=== PATIENT | male | born 1955 | race Caucasian/White ===

== ENCOUNTER 2017-07-28 14:07 | Outpatient (CLI) | payer MEDICAID ==
--- NOTE | 2017-07-28 19:21 | XRAY Report ---
DATE OF SERVICE: 07/28/2017 TWO VIEW CHEST: 07/28/2017 CLINICAL INDICATION: A 61-year-old with history of TB exposure. Frontal and lateral views of the chest demonstrate a normal cardiac silhouette. The lungs are clear. No effusion or pneumothorax is present. IMPRESSION: Normal chest. No evidence of active tuberculosis. TD: 07/28/2017 20:20
== END 2017-07-28 14:08 | disposition home or self-care (01) ==
LOC: DI 14:07
PROVIDERS: ATTEND Family Medicine
DX: R76.12 Nonspecific reaction to cell mediated immunity measurement of gamma interferon antigen response without active tuberculosis (principal); Z20.1 Contact with and (suspected) exposure to tuberculosis
CPT/HCPCS: 71046

== ENCOUNTER 2018-12-21 08:42 | Outpatient (CLI) | payer MEDICAID ==
--- NOTE | 2018-12-21 09:12 | XRAY Report ---
Reason: FOOT PAIN,RIGHT Procedure Date: 12/21/2018 Accession Number: [id number] / [id number] Procedure: WCP - Foot 2 View RT CPT Code: FULL RESULT: EXAM: RIGHT FOOT RADIOGRAPHY EXAM DATE: 12/21/2018 09:02 AM. CLINICAL HISTORY: FOOT PAIN,RIGHT. COMPARISON: None. TECHNIQUE: 3 views. FINDINGS: Bones: Normal. No fractures or bone lesions. Joints: Normal. No subluxations. Soft Tissues: Normal. No soft tissue swelling. IMPRESSION: Normal foot radiography. RADIA
== END 2018-12-21 08:43 | disposition home or self-care (01) ==
LOC: DI.WCP 08:42
PROVIDERS: ATTEND Family Medicine
DX: M79.671 Pain in right foot (principal)

== ENCOUNTER 2020-01-17 13:22 | Emergency (ER) | payer MEDICARE, MEDICAID ==
[2020-01-17 14:01] LABS: BASOPHILS # (AUTO) 0.1 10^3/uL (0.0-0.1); EOSINOPHILS # (AUTO) 0.1 10^3/uL (0.0-0.7); HGB - HEMOGLOBIN 15.8 g/dL (14.0-18.0); LYMPHOCYTES # (AUTO) 2.6 10^3/uL (1.5-3.5); LYMPHOCYTES % (AUTO) 37.4 %; MEAN CORPUSCULAR HEMOGLOBIN 30.6 pg (27.0-31.0); MEAN CORPUSCULAR HGB CONC 34.9 g/dL (32.0-36.0); MEAN CORPUSCULAR VOLUME 87.8 fL (80.0-94.0); MEAN PLATELET VOLUME 10.4 fL (7.4-11.4); MONOCYTES # (AUTO) 0.6 10^3/uL (0.0-1.0); MONOCYTES % (AUTO) 8.9 %; NEUTROPHILS # (AUTO) 3.5 10^3/uL (1.5-6.6); NEUTROPHILS % (AUTO) 50.4 %; PLT - PLATELET COUNT 241 10^3/uL (130-450); RED BLOOD COUNT 5.16 10^6/uL (4.70-6.10); RED CELL DISTRIBUTION WIDTH 12.5 % (12.0-15.0); WHITE BLOOD COUNT 6.9 x10^3/uL (4.8-10.8)
--- NOTE | 2020-01-17 14:15 | ED Physician Documentation ---
History of Present Illness - Stated complaint Stated Complaint: ABD PX - Chief complaint Chief Complaint: Cardiac - History obtained from History obtained from: Patient - History of Present Illness Timing: Prior to arrival, How many hours ago (2) Pain level max: 10 Pain level now: 7 Radiates to: back, shoulders - Additonal information Additional information: 64-year-old male presents to the emergency department with a chief complaint of very sudden onset upper abdominal pain that he reports nearly dropped him to his knees. The pain was sharp sub-costal on both sides and radiated to his back. It did make him feel faint and lightheaded though he did not syncopize. Patient denies any history of similar pain in the past. Denies any pertinent past surgical history. He has a history of marginal hypertension though is never been started on medications. Denies any previous history of myocardial infarction. He reports that he is generally very healthy and is an active runner. This pain followed a meal that had been eaten approximately 1 hour before but at the time the pain started he was simply sitting in a chair without activity. pmh: negative meds: none Review of Systems Cardiac: reports: Chest pain / pressure, Palpitations Respiratory: denies: Dyspnea, Cough GI: reports: Abdominal Pain. denies: Nausea, Vomiting, Constipation, Diarrhea, Hematemesis : denies: Dysuria Skin: reports: Rash, Lesions Musculoskeletal: reports: Back pain Neurologic: reports: Generalized weakness. denies: Syncope, Seizure, Confused PD PAST MEDICAL HISTORY - Past Medical History Past Medical History: No - Past Surgical History Past Surgical History: No - Present Medications Home Medications: Ambulatory Orders Medication Instructions Recorded Confirmed No Known Home Medications 01/17/20 01/17/20 - Allergies Allergies/Adverse Reactions: Allergies Allergy/AdvReac Type Severity Reaction Status Date / Time No Known Drug Allergies Allergy Verified 01/17/20 13:27 - Social History Does the pt smoke?: No Smoking Status: Never smoker Does the pt drink ETOH?: No Does the pt have substance abuse?: No - Immunizations Immunizations are current?: Yes PD ED PE NORMAL - General General: Alert and oriented X 3, Other (appears uncomfortable) - HEENT HEENT: EOMI - Cardiac Cardiac: RRR, No murmur, Strong equal pulses (2+ fempral, 2+ radial, 2+ carotid bilaterally), Other (no abdominal thrill or bruit appreciated) - Respiratory Respiratory: No respiratory distress, Clear bilaterally - Abdomen Abdomen: Normal bowel sounds, Soft, Non tender, Non distended, Other (Unable to elicit abdominal pain on exam. Negative Chaparro's.) - Back Back: No CVA TTP, No spinal TTP Results - Vitals Vitals: Vital Signs - 24 hr 01/17/20 01/17/20 01/17/20 13:27 13:45 14:01 Temperature 36.5 C Heart Rate 58 L 60 54 L Respiratory 28 H 19 16 Rate Blood Pressure 110/58 L 127/64 103/69 O2 Saturation 100 100 99 01/17/20 01/17/20 14:28 15:20 Temperature Heart Rate 54 L 60 Respiratory 10 L 13 Rate Blood Pressure 109/74 123/70 O2 Saturation 100 97 Oxygen O2 Source Room air - EKG (time done) 1337 Rate: Rate (enter#) (65) Rhythm: NSR Sobieski: Normal Intervals: Normal [place] QRS: Normal Ischemia: Normal ST segments Compare to prior EKG: Old EKG unavailable Computer interpretation: Agree with computer - Labs Labs: Laboratory Tests 01/17/20 01/17/20 01/17/20 13:40 13:40 13:40 WBC 6.9 RBC 5.16 Hgb 15.8 Hct 45.3 MCV 87.8 MCH 30.6 MCHC 34.9 RDW 12.5 Plt Count 241 MPV 10.4 Neut # (Auto) 3.5 Lymph # (Auto) 2.6 [place] # (Auto) 0.6 Eos # (Auto) 0.1 Baso # (Auto) 0.1 Absolute Nucleated RBC 0.00 Nucleated RBC % 0.0 Sodium 136 Potassium 3.2 L Chloride 97 L Carbon Dioxide 24 Anion Gap 15.0 H BUN 17 Creatinine 0.9 Estimated GFR (MDRD) 85 L Glucose 143 H Calcium 9.6 Total Bilirubin 1.2 H AST 44 H ALT 31 Alkaline Phosphatase 57 Troponin I High Sens 2.4 Total Protein 7.3 Albumin 4.7 Globulin 2.6 Albumin/Globulin Ratio 1.8 Lipase 37 - Rads (name of study) CXR Radiology: Final report received (No acute cardiopulmonary pathology) CT angio chest: Radiology: Final report received (No evidence of aortic aneurysm or dissection. Small calcification in the region of the ampulla may reflect choledocholithiasis or pancreatic calcification) CT angio abd/pelvis Radiology: Final report received (Small calcification in the region of the ampulla of Vater suggestive of a small biliary stone. No associated biliary or pancreatic duct dilation) PD MEDICAL DECISION MAKING - ED course Complexity details: reviewed results, re-evaluated patient, considered differential, d/w patient ED course: 64-year-old Male presents to the emergency department with sudden onset sharp abdominal pain that radiated to his back. He had associated diaphoresis feeling faint and near syncope. - Differential diagnosis considered but not limited to cholecystitis, peptic ulcer disease, aortic dissection or aneurysm, acute myocardial infarction, pulmonary embolism. - Chest x-ray was unremarkable. However given the age and the symptoms very suggestive of an aortic dissection or aneurysm CT angios of the chest and abdomen pelvis was completed.Fortunately no aneurysm or dissection was found. His EKG was nonischemic. His troponin is negative. He is Wells Score is low. I have low suspicion for pulmonary embolus. - A small calcification in the region of the ampulla may have reflected choledocholithiasis or pancreatic calcification.There was no biliary duct dilation. I discussed these CT findings at length with the patient and I offered further evaluation with ultrasound imaging. However patient is adamant that he be discharged at this time. He does not want to wait in the emergency department any further.Therefore I have recommended very close follow-up with his primary care doctor for outpatient evaluation and treatment. I made very clear that if he has a return of the pain, any associated vomiting then he is to return immediately for likely ultrasound imaging. Departure - Departure Disposition: 01 Home, Self Care Clinical Impression: Abdominal pain Qualifiers: Abdominal location: upper abdomen, unspecified Qualified Code(s): R10.10 - Upper abdominal pain, unspecified Condition: Stable Instructions: Gallstones Comments: Saman fortunately the CT scan showed no dissection or aneurysm in your chest or abdomen. CT did show a small calcification within the area of the gallbladder that might be consistent with a gallstone.Reassuringly you do not have any gall bladder biliary duct dilation. It is important that you see your primary doctor in follow-up in the next week. You should discuss this emergency department visit. Outpatient ultrasound imaging should be performed for further evaluation of the gallbladder. You were offered this imaging today and did not want to proceed with it. If the pain returns, you have fevers, uncontrolled vomiting or feel faint or lightheaded then please return immediately to the emergency department for imaging.
[2020-01-17 14:16] LABS: ALBUMIN 4.7 g/dL (3.2-5.5); ALBUMIN/GLOBULIN RATIO 1.8 (1.0-2.2); BILIRUBIN,TOTAL 1.2 mg/dL (0.2-1.0); CALCIUM 9.6 mg/dL (8.5-10.3); CREATININE 0.9 mg/dL (0.6-1.2); TOTAL PROTEIN 7.3 g/dL (6.7-8.2)
--- NOTE | 2020-01-17 14:31 | XRAY Report ---
PROCEDURE: Chest 1 View X-Ray INDICATIONS: Chest pain TECHNIQUE: One view of the chest was acquired. COMPARISON: 07/28/2017 FINDINGS: Surgical changes and devices: None. Lungs and pleura: No pleural effusions or pneumothorax. Lungs are clear. Mediastinum: Mediastinal contours appear normal. Heart size is normal. Bones and chest wall: No suspicious bony lesions. Overlying soft tissues appear unremarkable. IMPRESSION: No acute cardiopulmonary pathology. Reviewed by: Sachin Mesa MD on 01/17/2020 2:30 PM PDT Approved by: Sachin Mesa MD on 01/17/2020 2:30 PM PDT Station ID: [id number]
[2020-01-17] MEDS ORDERED: IOVERSOL 320 100 ML VIAL IVP ONE ×2 (14:36→14:51)
--- NOTE | 2020-01-17 15:11 | CT Report ---
PROCEDURE: ANGIO CHEST W/WO INDICATIONS: sudden onset abd pain; r/o ao dx vs aaa CONTRAST: IV CONTRAST: Optiray 320 ml: 100 PO CONTRAST: *NO PO CONTRAST TECHNIQUE: Noncontrast 3 mm axial images obtained through the thorax. After the administration of intravenous co ntrast, 3 mm thick sections acquired from the pulmonary apices to the posterior costophrenic angles. 3-dimensional maximum intensity projection (MIP) coronal and sagittal reformats were then acquired t hrough the thorax. For radiation dose reduction, the following was used: automated exposure control, adjustment of mA and/or kV according to patient size. COMPARISON: Concurrent CT angiogram of the abdomen and pelvis. FINDINGS: Image quality: Excellent. Aorta: The aorta is normal in caliber and contour. Noncontrast images demonstrate no evidence of int ramural hematoma. Postcontrast images demonstrate no intimal flaps to suggest aortic dissection. Ther e is conventional branching of the aortic arch. The visualized great vessels are normal in caliber an d appear widely patent. Mediastinum: Heart size is normal, without pericardial effusion. No mediastinal or hilar adenopathy by size criteria. There is a calcified right hilar lymph node compatible with sequelae of old granul omatous disease. Esophagus is normal in caliber, without hiatal hernia. Lungs and pleura: There is mild dependent atelectasis bilaterally. No acute consolidation. No pleural effusions or pneumothorax. Central and peripheral airways are patent. Bones and chest wall: No suspicious bony lesions. Ribs and thoracic spine appear intact throughout. The thyroid demonstrates no discrete nodules. No axillary or supraclavicular adenopathy. Abdomen: Visualized upper abdomen demonstrates a small cyst in the right hepatic dome. There is a sm all calcification in the region of the ampulla of Vater. No biliary ductal dilatation within the visu alized abdomen. No pancreatic duct dilatation. IMPRESSION: 1. No evidence of aortic aneurysm or dissection. 2. No acute airspace disease in the lungs. 3. Small calcification in the region of the ampulla may reflect choledocholithiasis or pancreatic valdez cification. No biliary ductal dilatation. Recommend correlation clinically including with laboratory values. Reviewed by: Daniel Love MD on 01/17/2020 3:10 PM PDT Approved by: Daniel Love MD on 01/17/2020 3:10 PM PDT Station ID: [id number]
--- NOTE | 2020-01-17 15:29 | CT Report ---
PROCEDURE: ANGIO ABDOMEN/PELVIS W INDICATIONS: sudden onset upper abdominal pain; ? ao dx vs aaa CONTRAST: IV CONTRAST: Optiray 320 ml: 100 PO CONTRAST: *NO PO CONTRAST TECHNIQUE: After the administration of intravenous contrast, 3 mm sections acquired from the diaphragm through t he pubic symphysis. 3-dimensional maximum intensity projection (MIP) coronal and sagittal reformats, and/or 3-dimensional volume rendering reformatting was then performed. For radiation dose reduction , the following was used: automated exposure control, adjustment of mA and/or kV according to patien t size. COMPARISON: Concurrent CT angiogram chest. FINDINGS: Image quality: Excellent. Extravascular tissues: There is mild dependent atelectasis bilaterally. Heart size is normal. There is a small cyst in the right hepatic dome. The gallbladder appears within normal limits without calci fied gallstones. No intra or extrahepatic biliary ductal dilatation. There is a small calcification i n the region of the ampulla of Vater measuring approximately 2 mm. No pancreatic duct dilatation. No peripancreatic fat stranding or fluid collections. There is a small left adrenal nodule measuring carlos roximately 1.4 cm. Kidneys demonstrate no hydronephrosis. The spleen is normal in size. Small and lar ge bowel loops demonstrate normal wall thickness and caliber. The appendix is normal in appearance. T here is colonic diverticulosis without acute diverticulitis. No free fluid or air. No retroperitonea l or mesenteric adenopathy. No ventral hernias. The bladder demonstrates normal wall thickness. Ther e is enlargement of the prostate. No suspicious bony abnormalities. No vertebral body compression fr actures. Abdominal aorta: The abdominal aorta is normal in caliber and contour. No intimal flaps to suggest d issection. In the common, external, and internal iliac arteries are also patent and normal in caliber . The common femoral and visualized proximal superficial femoral arteries also appear patent. Mesenteric arteries: The celiac, superior mesenteric, and inferior mesenteric arteries appear patent. Renal arteries: There are bilateral accessory renal arteries supplying the inferior poles. The renal arteries appear patent bilaterally. IMPRESSION: 1. No evidence of abdominal aortic aneurysm or dissection. 2. Small calcification in the region of the ampulla of Vater suggestive of a small biliary stone. No associated biliary or pancreatic duct dilatation. The differential includes a pancreatic calcificatio n related to chronic pancreatitis. 3. Small indeterminate left adrenal nodule. Further evaluation may be obtained with an adrenal protoc ol CT or MRI if indicated. 4. Colonic diverticulosis. Reviewed by: Daniel Love MD on 01/17/2020 3:28 PM PDT Approved by: Daniel Love MD on 01/17/2020 3:28 PM PDT Station ID: [id number]
[2020-01-17 16:05] LABS: BILIRUBIN,URINE NEGATIVE (NEGATIVE); GLUCOSE, URINE (UA) NEGATIVE (NEGATIVE); KETONES,URINE (UA) TRACE mg/dL (NEGATIVE); LEUKOCYTE ESTERASE, URINE NEGATIVE (NEGATIVE); NITRITE,URINE NEGATIVE (NEGATIVE); OCCULT BLOOD,URINE NEGATIVE (NEGATIVE); PH,URINE 8.5 PH (5.0-7.5); PROTEIN,URINE NEGATIVE (NEGATIVE); UROBILINOGEN,URINE 0.2 (NORMAL) E.U./dL (NORMAL)
[2020-01-17 16:12] LABS: CLARITY,URINE CLEAR (CLEAR)
[2020-01-17 16:24] VITALS: BP 130/70
== END 2020-01-17 16:23 | disposition home or self-care (01) ==
LOC: ED 13:22
DX: R10.10 Upper abdominal pain, unspecified (principal); R07.9 Chest pain, unspecified; R53.1 Weakness
CPT/HCPCS: 71045; 71275; 74174; 80053; 81003; 83690; 84484; 85025; 93005; 99284; Q9967; 81001; 87086

== ENCOUNTER 2020-01-18 23:02 | Emergency (ER) | payer MEDICARE, MEDICAID ==
--- NOTE | 2020-01-18 23:18 | ED Physician Documentation ---
History of Present Illness - Stated complaint Stated Complaint: ABD PX/VOM - History obtained from History obtained from: Patient (Patient is a 64-year-old male seen here yesterday had a CTA of the chest and CT of the abdomen pelvis that did show possible cholelithiasis. Patient presents with worsening nausea vomiting and right upper quadrant) Review of Systems Constitutional: reports: Reviewed and negative Eyes: reports: Reviewed and negative Ears: reports: Reviewed and negative Nose: reports: Reviewed and negative Throat: reports: Reviewed and negative Cardiac: reports: Reviewed and negative Respiratory: reports: Reviewed and negative GI: reports: Abdominal Pain, Nausea, Vomiting : reports: Reviewed and negative Skin: reports: Reviewed and negative Musculoskeletal: reports: Reviewed and negative Neurologic: reports: Reviewed and negative Psychiatric: reports: Reviewed and negative Endocrine: reports: Reviewed and negative Immunocompromised: reports: Reviewed and negative PD PAST MEDICAL HISTORY - Past Surgical History Past Surgical History: No - Present Medications Home Medications: Ambulatory Orders Medication Instructions Recorded Confirmed No Known Home Medications 01/17/20 01/19/20 - Allergies Allergies/Adverse Reactions: Allergies Allergy/AdvReac Type Severity Reaction Status Date / Time No Known Drug Allergies Allergy Verified 01/17/20 13:27 - Social History Does the pt smoke?: No Smoking Status: Never smoker Does the pt drink ETOH?: No Does the pt have substance abuse?: No - Immunizations Immunizations are current?: Yes PD ED PE NORMAL - Vitals Vital signs reviewed: Yes - General General: Alert and oriented X 3, Well developed/nourished - HEENT HEENT: PERRL, Moist mucous membranes - Neck Neck: Supple, no meningeal sign - Cardiac Cardiac: RRR, No murmur, Strong equal pulses - Respiratory Respiratory: No respiratory distress, Clear bilaterally - Abdomen Abdomen: Normal bowel sounds, Soft, Non distended, Other (No midline abdominal pulsatile mass positive Chaparro sign tender in the right upper quadrant) - Derm Derm: Warm and dry - Extremities Extremities: No deformity, No tenderness to palpate, Normal ROM s pain, No edema, No calf tenderness / cord - Neuro Neuro: Alert and oriented X 3, manuscripts archivist 2-12 intact, No motor deficit, No sensory deficit, Normal speech - Psych Psych: Normal mood, Normal affect Results - Vitals Vitals: Vital Signs - 24 hr 01/18/20 01/18/20 01/19/20 23:22 23:43 00:15 Temperature 37.4 C 36.1 C L Heart Rate 60 59 L 57 L Respiratory 20 20 18 Rate Blood Pressure 127/73 132/77 H O2 Saturation 100 100 100 01/19/20 01/19/20 01/19/20 00:35 00:56 01:48 Temperature Heart Rate 60 57 L 55 L Respiratory 18 17 15 Rate Blood Pressure 132/77 H 150/84 H 154/84 H O2 Saturation 100 99 100 Oxygen O2 Source Room air Oxygen Flow Rate 2 - Labs Labs: Laboratory Tests 01/18/20 01/18/20 01/18/20 23:20 23:20 23:20 WBC 14.1 H RBC 5.32 Hgb 15.7 Hct 46.9 MCV 88.2 MCH 29.5 MCHC 33.5 RDW 12.7 Plt Count 258 MPV 11.3 Neut # (Auto) 10.6 H Lymph # (Auto) 2.3 [place] # (Auto) 0.9 Eos # (Auto) 0.1 Baso # (Auto) 0.1 Absolute Nucleated RBC 0.00 Nucleated RBC % 0.0 Sodium 133 L Potassium 3.1 L Chloride 99 L Carbon Dioxide 15 L Anion Gap 19.0 H BUN 9 Creatinine 0.9 Estimated GFR (MDRD) 85 L Glucose 177 H Lactic Acid Calcium 9.2 Total Bilirubin 1.7 H AST 166 H ALT 212 H Alkaline Phosphatase 94 Troponin I High Sens < 2.3 L Total Protein 7.4 Albumin 4.7 Globulin 2.7 Albumin/Globulin Ratio 1.7 Lipase 3760 H Ethyl Alcohol 01/19/20 01/19/20 00:45 01:06 WBC RBC Hgb Hct MCV MCH MCHC RDW Plt Count MPV Neut # (Auto) Lymph # (Auto) [place] # (Auto) Eos # (Auto) Baso # (Auto) Absolute Nucleated RBC Nucleated RBC % Sodium Potassium Chloride Carbon Dioxide Anion Gap BUN Creatinine Estimated GFR (MDRD) Glucose Lactic Acid 1.5 Calcium Total Bilirubin AST ALT Alkaline Phosphatase Troponin I High Sens Total Protein Albumin Globulin Albumin/Globulin Ratio Lipase Ethyl Alcohol < 5.0 PD MEDICAL DECISION MAKING - ED course Complexity details: reviewed old records, reviewed results, re-evaluated patient, considered differential, d/w patient, d/w family, d/w trousseau consultant (Dr. Whyte signal technician at [facility] accepts this patient. spoke with hospitalist dr. guzman who agrees to accept this patient.) - Consults Consults: Discussed case with (01:25 Dr. Whyte signal technician at [facility]. Will accept this patient to be transferred for ERCP.) - Critical Care Time(min): 30 Time Includes: Direct patient care, Review records, Reassess patient, Document care, Coordinate care, Medical consult, Family consult for tx dec Data interpretation: Labs, Prior EKG Procedures included in critical care time: Peripheral IV, Blood draw Procedures excluded from critical care time: EKG Departure - Departure Disposition: 02 Transfer Acute Care Hosp Clinical Impression: Gallstone pancreatitis Condition: Stable
[2020-01-18] MEDS ORDERED: SODIUM CHLORIDE 0.9% 1,000 ML IV STA (23:25)
[2020-01-18] MEDS ORDERED: HYDROmorphone 0.5 MG/0.5 ML SYRINGE IVP STA (23:25)
[2020-01-18] MEDS ORDERED: ONDANSETRON 4 MG/2 ML VIAL IVP STA (23:25)
[2020-01-18 23:32] LABS: BASOPHILS # (AUTO) 0.1 10^3/uL (0.0-0.1); BASOPHILS % (AUTO) 0.7 %; EOSINOPHILS # (AUTO) 0.1 10^3/uL (0.0-0.7); HGB - HEMOGLOBIN 15.7 g/dL (14.0-18.0); LYMPHOCYTES # (AUTO) 2.3 10^3/uL (1.5-3.5); LYMPHOCYTES % (AUTO) 16.3 %; MEAN CORPUSCULAR HEMOGLOBIN 29.5 pg (27.0-31.0); MEAN CORPUSCULAR HGB CONC 33.5 g/dL (32.0-36.0); MEAN CORPUSCULAR VOLUME 88.2 fL (80.0-94.0); MEAN PLATELET VOLUME 11.3 fL (7.4-11.4); MONOCYTES # (AUTO) 0.9 10^3/uL (0.0-1.0); MONOCYTES % (AUTO) 6.3 %; NEUTROPHILS # (AUTO) 10.6 10^3/uL (1.5-6.6); NEUTROPHILS % (AUTO) 75.3 %; PLT - PLATELET COUNT 258 10^3/uL (130-450); RED BLOOD COUNT 5.32 10^6/uL (4.70-6.10); RED CELL DISTRIBUTION WIDTH 12.7 % (12.0-15.0); WHITE BLOOD COUNT 14.1 x10^3/uL (4.8-10.8)
[2020-01-18 23:43] LABS: ALBUMIN 4.7 g/dL (3.2-5.5); ALBUMIN/GLOBULIN RATIO 1.7 (1.0-2.2); CALCIUM 9.2 mg/dL (8.5-10.3); CREATININE 0.9 mg/dL (0.6-1.2); TOTAL PROTEIN 7.4 g/dL (6.7-8.2)
[2020-01-19] LABS: BILIRUBIN,TOTAL 1.7 mg/dL (0.2-1.0)
[2020-01-19] MEDS ORDERED: ONDANSETRON 4 MG/2 ML VIAL IVP STA (00:28)
[2020-01-19] MEDS ORDERED: HYDROmorphone 0.5 MG/0.5 ML SYRINGE IVP STA (00:34)
[2020-01-19] MEDS ORDERED: PIPERACILLIN/TAZOBACTAM 3.375 GM in SODIUM CHLORIDE 0.9% MINIBAG 100 ML IV STA (00:39)
[2020-01-19] MEDS ORDERED: SODIUM CHLORIDE 0.9% 1,000 ML IV STA (00:40)
[2020-01-19 03:31] VITALS: BP 155/93
--- NOTE | 2020-01-19 09:06 | Ultrasound Report ---
PROCEDURE: Abdomen Limited INDICATIONS: RUQ PAIN TECHNIQUE: Real-time focused scanning was performed of the abdomen, with image documentation. COMPARISON: CT abdomen and pelvis with contrast, 01/17/2020. FINDINGS: Liver is normal in size and echotexture. A 1 cm cyst is noted in the right hepatic lobe. There are gallbladder stones. Gallbladder wall is thickened measuring 6.1 mm. A trace amount of peric holecystic fluid is present. Common bile duct is mildly dilated measuring 7.2 mm. Visualized pancreas demonstrates increased echotexture. Right kidney is normal in size and echotexture. No right hydronephrosis. IMPRESSION: 1. Cholelithiasis. There is gallbladder wall thickening and a trace amount of pericholecystic fluid c ollection. The findings are consistent with acute cholecystitis. 2. Mildly distended common bile duct. Please correlate with serum bilirubin for biliary obstruction. No discrepancy with the preliminary interpretation. Reviewed by: Tom Ricci MD on 01/19/2020 9:05 AM PDT Approved by: Tom Ricci MD on 01/19/2020 9:05 AM PDT Station ID: [id number]
== END 2020-01-19 03:31 | disposition short-term general hospital (02) ==
LOC: ED 23:02
DX: K85.10 Biliary acute pancreatitis without necrosis or infection (principal)
CPT/HCPCS: 36415; 76705; 80053; 83605; 83690; 84484; 85025; 93005; 96361; 96365; 96375; 96376; 99285; 99291; J1170; 80320

== ENCOUNTER 2020-01-19 03:35 | Outpatient (CLI) | payer MEDICARE, MEDICAID | END 2020-01-19 03:36 | disposition short-term general hospital (02) | LOC: EMS 03:35 | PROVIDERS: ATTEND Surgery | DX: R10.11 Right upper quadrant pain (principal) | CPT/HCPCS: A0425; A0426 ==

== ENCOUNTER 2020-03-10 19:16 | Outpatient (CLI) | payer MEDICARE, MEDICAID ==
--- NOTE | 2020-03-11 09:43 | XRAY Report ---
PROCEDURE: Knee 3 View RT INDICATIONS: KNEE PAIN, RIGHT TECHNIQUE: 3 views of the right knee(s) were acquired. COMPARISON: None. FINDINGS: Bones: No acute fractures or dislocations. Moderate tricompartmental degenerative changes of the rig ht knee with prominent superior patellar enthesophyte at the insertion site of the distal quadriceps tendon. No osseous abnormalities underlying the patient directed area of pain as noted by skin BB mar ker. This correlates with the posterior margin of the medial tibial plateau. No suspicious bony lesi ons. Soft tissues: Very small joint effusion. No suspicious soft tissue calcifications. IMPRESSION: 1. Right knee without acute osseous abnormalities. 2. Tricompartmental osteoarthrosis of the right knee. 3. No radiographic abnormalities correlating with area of patient's pain has been indicated by skin B B marker over the medial, posterior aspect of the tibial plateau, near the joint line. If there is pe rsistent clinical concern, consider further evaluation with MRI. Reviewed by: Adam Ding MD on 03/11/2020 9:42 AM PDT Approved by: Adam Ding MD on 03/11/2020 9:42 AM PDT Station ID: [id number]
== END 2020-03-10 19:17 | disposition home or self-care (01) ==
LOC: DI 19:16
PROVIDERS: ATTEND Physician Assistant Medical
DX: M17.11 Unilateral primary osteoarthritis, right knee (principal)

== ENCOUNTER 2021-01-22 16:12 | Outpatient (CLI) | payer MEDICARE, MEDICAID | END 2021-01-22 16:13 | disposition home or self-care (01) | LOC: COV 16:12 | PROVIDERS: ATTEND Family Medicine | DX: R05 Cough (principal); R07.0 Pain in throat; Z20.822 Contact with and (suspected) exposure to COVID-19 ==